=== PATIENT | female | born 1980 | race Caucasian/White ===

== ENCOUNTER 2022-10-06 12:44 | Emergency (ER) | payer BC, SELFPAY ==
[2022-10-06 12:44] VITALS: BP 144/97; PULSE 100; RESP 18; TEMP 36.4; O2SAT 98; BMI 23.7
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
== END 2022-10-06 13:45 | disposition home or self-care (01) ==
PROVIDERS: Emergency Provider Emergency Medicine; PCP Internal Medicine; Visit Provider Emergency Medicine
DX: S06.0X0A Concussion without loss of consciousness, initial encounter (principal); V43.52XA Car driver injured in collision with other type car in traffic accident, initial encounter
CPT/HCPCS: 70450; 99282

== ENCOUNTER 2024-05-30 05:54 | Day surgery (SDC) | payer BC, SELFPAY ==
--- NOTE | 2024-05-28 11:53 | HP.PCM.OB_ITS ---
History and Physical Date of Admission: 05/30/24 Expand All Collapse All Pre-Op History and Physical HPI: The patient is a 43 year old female presenting for pre-operative visit. She is scheduled for Hysteroscopy D&C and polypectomy, for AUB, Endometrial polyps on 05/30/24. Procedure discussed along with risks, benefits and complications. Other alternatives discussed for management. Consent form signed? Yes. PAST MEDICAL HISTORY PAST MEDICAL HISTORY Diagnosis Date ? Adenomatous colon polyp ? Lump or mass in breast 05/01/2006 LEFT Breast. This has since resolved. ? Other forms of migraine ? Vitiligo since childhood PAST SURGICAL HISTORY PAST SURGICAL HISTORY Procedure Laterality Date ? COLONOSCOPY 05/11/2021 ? PAST SURGICAL HISTORY OF Right 06/2014 right knee surgery CURRENT MEDICATIONS Current Outpatient Medications Medication Sig Dispense Refill ? budesonide-formoterol (SYMBICORT) 160-4.5 mcg/actuation inhaler Inhale 2 Puffs as instructed two times a day. 1 Each 1 ? fluticasone-salmeterol (WIXELA INHUB) 250-50 mcg/dose inhaler Inhale 1 Puff as instructed two times a day. 1 Each 1 ? albuterol HFA (VENTOLIN HFA) 90 mcg/actuation inhaler Inhale 2 Puffs as instructed every 4 hours as needed for wheezing/shortness of breath. 1 Each 1 ? cyclobenzaprine (FLEXERIL) 10 mg tablet Take 1 tablet by mouth at bedtime as needed for muscle spasm. 30 tablet 0 ? ibuprofen (MOTRIN) 200 mg tablet Take 200 mg by mouth every 6 hours as needed. ? ergocalciferol 50,000 unit capsule (VITAMIN D2, DRISDOL) Take 1 capsule by mouth two times a week. TO BE TAKEN ORALLY DIRECTED. Take 1 tablet by mouth twice weekly [id number], then decrease to 1 tablet weekly. 24 capsule 3 ? lidocaine 5 % gel Apply to affected area three times daily as needed. 30 g 0 ? aspirin/acetaminophen/caffeine(EXCEDRIN MIGRAINE 250 MG-250 MG-65 MG TAB) as necessary 0 0 ? wheat dextrin (BENEFIBER SUGAR FREE, DEXTRIN,) 3 gram/3.8 gram powd Take 12 g by mouth once daily. Current Facility-Administered Medications Medication Dose Route Frequency Provider Last Rate Last Admin ? cyanocobalamin 1,000 mcg injection 1,000 mcg INTRAMUSCULAR q 4 WEEKS Sera Jones APRN.WINDOWS SERVER SUPPORT TECHNICIAN 1,000 mcg at 04/23/24 1008 ALLERGIES: Patient has no known allergies. PERSONAL HISTORY: SOCIAL HISTORY Social History Tobacco Use ? Smoking status: Never ? Smokeless tobacco: Never Vaping Use ? Vaping status: Never Used Substance Use Topics ? Alcohol use: Yes Alcohol/week: 3.0 standard drinks of alcohol Types: 3 Cans of Beer (12oz) per week Comment: OCCASIONAL ? Drug use: No FAMILY HISTORY: FAMILY HISTORY FAMILY HISTORY Problem Relation Age of Onset ? Thyroid Mother Had removed, nonmalignant ? other (Fibroid tumor) Mother Had hysterectomy for this ? Heart Maternal Grandmother ? other (lupus) Maternal Grandmother ? Crohn's Disease Maternal Grandmother ? Heart Maternal Grandfather several UT's REVIEW OF SYMPTOMS: negative except as noted above PHYSICAL EXAMINATION: VITALS: Blood pressure 120/70, pulse 78, height 162.6 cm (5' 4), weight 65.8 kg (145 lb), last menstrual period 04/25/2024, SpO2 99%. GENERAL: The patient is well nourished, well hydrated in no acute distress. , The patient is oriented to time, place, and person. NECK: full range of motion LUNGS: Clear to auscultation bilaterally. no wheezes, rhonchi or rales HEART: Regular rate and rhythm, Normal heart sounds, and No murmurs or gallops IMPRESSION: 43yo with AUB, Endometrial polyps PLAN: hysteroscopy, D&C, polypectomy with symphion Pt has been counseled on risks/benefits and alternatives of surgery including but not limited to anesthesia, bleeding, infection, uterine perforation with subsequent injury to pelvic structures including bowel, bladder, ureters and vessels. Pt wishes to proceed with surgery at this time. Pre and post op instructions reviewed I have reviewed and updated past medical and surgical history, medications and allergies Katie Jaramillo MD Office Visit on 05/13/2024 Note shared with patient Additional Documentation Vitals: BP 120/70 Pulse 78 Ht 162.6 cm (5' 4) Wt 65.8 kg (145 lb) LMP 04/25/2024 (Exact Date) SpO2 99% BMI 24.89 kg/m? BSA 1.72 m? More Vitals Flowsheets: [facility] PDMP N[employer] SCORES, AMB ROOMING INTAKE MINI, Vital Signs Encounter Info: Billing Info, History, Allergies, Detailed Report
[2024-05-30] VITALS (9 sets, daily range): BP systolic 71–109; BP diastolic 48–84; PULSE 68–79; RESP 16; TEMP 36.1–37; O2SAT 96–100; BMI 24.5
[2024-05-30] MEDS: Lactated Ringers 1,000 ML 15 ML IV ×2 (07:21→07:29)
--- NOTE | 2024-05-30 07:23 | PRE.ANES_ITS ---
ASA Classification* ASA Classification ASA Classification: 2 Assessment & Plan Anesthesia* Anesthesia Assessment Anesthesia Assessment: Discussed sedation and/or anesthesia options, risks, benefits, and alternatives with patient/parents/legal guardian/POA. Questions invited. The patient/parents/legal guardian/POA seems to understand and agrees to proceed with anesthesia plan. Reviewed the physical assessment, medical history, allergy history and patient home medications list prior to surgery/procedure/anesthetic and documented any changes. Performed airway and anesthesia risk assessments. Anesthesia Type Anesthesia Type: MAC History Source History Obtained from:: Patient and Chart Anesthesia Focused Assessment* Temperature: 98.6 F Pulse Rate: 77 Blood Pressure: 71/48 (Repeat blood pressure is 95/75.) Respiratory Rate: 16 Pulse Ox: 98 Oxygen Delivery Method: Room Air Airway Assessment Mouth opens: >3 cm Mallampati Score: III Teeth Condition: Intact Neck Range of motion (ROM): Full ROM Focused Labs Anesthesia Preop lab: CBC WBC 12.5 K/mm3 (4.4-11.0) H 11/23/16 20:22 7 RBC 4.30 M/mm3 (4.2-5.4) 11/23/16 20:22 11/23/16 Hgb 13.0 g/dl (12.0-15.0) 11/23/16 20:22 11/23/16 Hct 39.3 % (37-47) 11/23/16 20:22 11/23/16 Plt Count 324 K/mm3 (150-450) 11/23/16 20:22 11/23/16 CHEMISTRY Potassium 3.8 mmol/L (3.5-5.1) 11/23/16 20:22 11/23/16 Sodium 137 mmol/L (136-145) 11/23/16 20:22 11/23/16 BUN 12 mg/dL (7-18) 11/23/16 20:22 11/23/16 Creatinine 0.84 mg/dL (0.55-1.02) 11/23/16 20:22 11/23/16 Glucose 98 mg/dL (70-110) 11/23/16 20:22 11/23/16 COAG Urine Test Pending 05/30/24 06:15 05/30/24 Pre-Assessment Diagnosis/Proposed Procedure Planned Operative Procedure(s): Hysteroscopy,D&C, polypectomy, Symphion Anesthesia History Anesthesia History - director funds development: Anesthesia History - director funds development Hx Hospitalization No 05/16/24 08:19 Any Problems With Anesthesia No 05/16/24 08:19 Cholinesterase deficiency No 05/16/24 08:19 You/Your Family Experience No 05/16/24 08:19 fever (hyperthermia) with Relationship Recent Exposure to Contagious No 05/30/24 06:30 Disease Does patient have nerve No 05/16/24 08:19 stimulator Patient instructed to have device shut off --Does patient have Pacemaker No 05/30/24 06:30 or ICD? When Was Last Pacemaker Check QUESTION #4 FULL TEXT: You/Your Family Experience fever (hyperthermia) with Anesthesia Last Oral Intake Last Oral intake: Last Oral Intake NPO since 20:00 05/30/24 06:30 Meds taken in AM with sips of No 05/30/24 06:30 water? Meds patient instructed to take am of surgery PONV PONV - director funds development: PONV - director funds development Female Yes 05/16/24 08:19 HX of Motion Sickness Yes 05/16/24 08:19 HX of N/V After Surgery Yes 05/16/24 08:19 Non-Smoker Yes 05/16/24 08:19 Duration of Surgery greater No 05/16/24 08:19 than 60 minutes Number of Risk Factors 4 05/16/24 08:19 PONV Score Severe Risk 05/16/24 08:19 Height & Weight Height & Weight: Anesthesia: Height & Weight Height 5 ft 4 in 05/30/24 06:30 Weight: 65 kg 05/30/24 06:30 Body Mass Index (BMI) 24.5 05/30/24 06:30 Respiratory Assessment Respiratory Assessment - director funds development: Respiratory Tract Infection Hx - director funds development Hx Respiratory Tract Infection No 05/16/24 08:19 STOP Sleep Apnea STOP Sleep Apnea - director funds development: STOP Sleep Apnea - director funds development Hx Hypertension No 05/16/24 08:19 Hx Sleep Apnea No 05/16/24 08:19 CPAP BIPAP Do you snore loudly (louder No 05/16/24 08:19 than talking or can be heard Do you often feel tired/ No 05/16/24 08:19 fatigued/ sleepy during daytime? Has anyone observed you stop No 05/16/24 08:19 breathing during sleep? STOP Results Negative 05/16/24 08:19 QUESTION #5 FULL TEXT : Do you snore loudly (louder than talking or can be heard through closed doors)? Tobacco Use History Tobacco Use History - director funds development: Tobacco Use History - director funds development Tobacco Use Smoking Status Never smoker 05/16/24 08:19 Hx Tobacco Use No 05/16/24 08:19 Years Smoking Packs Smoked per Day Smoking Cessation Date was within the last 15 years Hx Smoking Cessation Date Hx Smoking Cessation Counseling Hematologic Medial History Hematologic Hx - director funds development: Hematologic Medical Hx - compliance representative Hx of Blood Transfusion No 05/16/24 08:19 Hx of Transfusion in last 3 No 05/16/24 08:19 Months Date of Last Transfusion (if within last 3 months) Ever experience any problems No 05/16/24 08:19 with transfusion(s)? Specify any problems Hx of Preganancy in last 3 N/A 05/16/24 08:19 Months Nurse Filling Out Transfusion NBUCHER 05/16/24 08:19 & Questions: Date: 05/16/24 05/16/24 08:19 Time: 08:19 05/16/24 08:19 Patient unable to answer at this time (ie. confused, unrespo /Reproduction History /Reproductive History - director funds development: /Reproductive Hx- director funds development Hx Now No 05/16/24 08:19 Gestational Age (in weeks): EDC: Hx Hx Para Hx Section SAB No 05/16/24 08:19 Active Medications Active Medications: Current Medications Generic Name Dose Route Start Last Admin Trade Name Freq PRN Reason Stop Dose Admin Lactated Ringer's 1,000 mls @ 15 mls/hr 05/30/24 06:30 IV 06/02/24 01:09 .Q48H [facility] Protocol PFSH Medical History Wears glasses Alcohol use Low iron Migraine headache Syncope Non-smoker Home Medications ?Medication ?Instructions ?Recorded ?Last Taken ?Type Lactobacillus acidophilus 10 100 mmu cells PO DAILY Unknown History billion cell capsule (Probacap) calcium phosphate,dibasic 77 1 tab PO DAILY 05/16/24 U nknown History mg-vitamin D3 400 unit tablet ferrous sulfate 325 mg (65 mg 325 mg PO QDAY 05/16/24 Unknown History iron) tablet (Feosol) Allergy/AdvReac Type Severity Reaction Status Date / Time No Known Allergies Allergy Verified 05/16/24 08:17 Surgical History History of wisdom tooth extraction History of right knee surgery History of colonoscopy Social History Smoking Status: Never smoker Review of Systems (Anesthesia) ROS Narrative System reviewed and no additional complaints, except as documented.
--- NOTE | 2024-05-30 07:30 | EMB_PTH ---
PATIENT: JARED FUNES LOC: [facility] U#:[id number] AGE/SX: 43/F ROOM: RE05/30/[address]: Dr. Katie Ramos, MDDOB: 1980 BED: DIS: 05/30/2024 SPEC #: [id number] RECD: 05/30/24 14:45 STATUS: RICO REXiomara #: [id number] AMBREEN: 05/30/24 07:[address]: Katie Ramos DEPT: SURGICAL PATHOLOGY RECD BY: Anabel Rausch ENTERED: 05/31/24 08:33 SP TYPE: ENDOM BX/C GUERO DR: Dr. Елена Sotelo MD Tissues: Endometrium, NOS Procedures: Surgery Specimen Level IV HEADER OPERATION: Hysteroscopy, D&C, polypectomy PRE-OP DIAGNOSIS: Abnormal uterine bleeding TISSUE SUBMITTED: Endometrial curettings and endocervical polyp MICROSCOPIC DIAGNOSIS Endometrial curettings and endocervical polyp, D&C and polypectomy: Simple endometrial hyperplasia without atypia. Fragments of myometrium. Fragments of benign endocervical polyp. UBALDO. 06/03/2024 MICROSCOPIC DESCRIPTION Slides are reviewed. GROSS DESCRIPTION Received in fixative is one container labeled with the patient's name and designated Endometrial curettings and endocervical polyp. The specimen consists of multiple fragments of salmon indurated soft tissue mixed with mucoid tissue that in aggregate measure 3 x 2.5 x 0.3 cm. The specimen is totally submitted in one cassette. 05/31/2024 TC:5 CPT:[id number]
--- NOTE | 2024-05-30 08:05 | PCM.DC ---
Discharge Instructions Diet Discharge Diet: No restrictions DC O2, CPAP, BIPAP needs Home O2 Discharge instructions: No Dressing / Incision May resume sexual activity in: 1 week Dressing / Incision Call your doctor if you observe: Fever of 101 or Higher, Inability to urinate, Using more than 1 pad per hour and Uncontrolled pain Follow Up Care Please Follow Up With: Katie Ramos MD When: Dr. Jaramillo Will call with Pathology results. If you have concerns and need a post op visit call [phone] Test Results: Test results from this visit will be discussed in further detail at your follow-up appointment, if applicable. Discharge Plan Admission Attending Provider: Katie Ramos Primary Care Provider: Елена Sotelo Instructions Print Language: Turkish Discharge Orders/Prescriptions Prescriptions: No Action calcium phos,dibas-vitamin D3 77-400 mg-unit tablet 1 tab PO DAILY ferrous sulfate [Feosol] 325 mg (65 mg iron) tablet 325 mg PO QDAY Probacap 10 billion cell capsule 100 mmu cells PO DAILY Referrals / Follow Up: Елена Sotelo MD [Primary Care Provider] - Disposition Disposition (needs filled in before D/C Order can be placed): Home, Self Care
--- NOTE | 2024-05-30 08:07 | PCM.OPRPT ---
Operative Report (Standard) Operative Information Date of Procedure: 05/30/24 Pre-Operative Diagnosis: AUB, endometrial polyp Post-Operative Diagnosis: Same, endocervical polyp Surgery/Procedure Performed: Hysteroscopy, d&C, polypectomy with symphion mmd unit teacher: Yes Environmental Health Inspector: Pallavi Wallace MS3 Tasks completed by phlebotomist medical lab assistant: Retracting and Other (dilating cervix) Type of Anesthesia: MAC RN Documented Start/Stop Times: Operation Date: 05/30/24 07:30 Case Time Into Pre-Op 05/30/24 06:35 Out of Pre-Op 05/30/24 07:35 Anesthesia Start 05/30/24 07:38 Into Room 05/30/24 07:38 Procedure Start 05/30/24 07:54 Procedure End 05/30/24 08:04 Procedure Start Time: 07:54 Procedure Stop Time: 08:04 Select all DRAINS/GRAFTS/IMPLANTS that apply: None Estimated Blood Loss: <5cc Specimen collected: Yes Description of specimen(s) removed: endometrial curettings, endocervical polyps Description of surgery: Informed consent was obtained the patient was taken the operating room she was placed in supine position. She was given anesthesia. She was then placed in the [facility] where she was prepped and draped in the normal sterile fashion. bladder drained. At this time the weighted speculum was placed in the posterior fornix of vagina. Single-tooth tenaculum was used to gently grasp the anterior lip the cervix. At this time the uterine cavity was sounded to approximately 8 cm. Gentle dilatation was performed once adequate dilatation of the cervix was achieved the hysteroscope using normal saline as a distention medium was placed. Tubal ostia visualized. Endocervical polyp noted and possible endometrial polypoid tissue. Symphion resecting device used to obtain endometrial curettings and to perform polypectomy. Tissue will be sent to pathology for evaluation. Tenaculum removed. Good hemostasis. Instrument, lap count correct x 2. Vaginal Sweep was negative. Surgical Findings: endocervical polyp, possible endometrial polypoid tissue Complications Complications: No Admit VTE Documentation VTE Present on Admission: Yes VTE Mechan Device Prophylaxis: SCD's VTE Pharm Prophylaxis ordered?: No Reason prophylaxis not ordered: Treatment Not Indicated
--- NOTE | 2024-05-30 08:18 | PCM.POST.ANE ---
Anesthesia: Postop Eval I Current Vital Signs Temperature: 97 F Pulse Rate: 79 Blood Pressure: 107/81 Respiratory Rate: 16 Pulse Ox: 96 Oxygen Delivery Method: Room Air Assessment Airway patent: Yes Spontaneous unlabored respirations: Yes Mental status: Awake and Calm nausea: No Vomiting: No Anesthesia Complication: No Fluid Hydration Crystalloid volume administer (ml): 300 Total IV fluid infused: 300 Progress Note Anesthesia document: Postop Eval 1 completed: Yes
[2024-05-30 08:57] LABS: Internal QC Validated? YES +Cl - CLEAR BKGD; Pregnancy, Urine Negative Negative
[2024-05-30] MEDS: Ondansetron ODT 4 MG Tablet PO (09:38)
--- NOTE | 2024-05-30 13:37 | POSTOPAN2_ITS ---
Anesthesia Postop Eval I Sum Postop Eval Completion status Anesthesia document: Postop Eval 1 completed: Yes Anesthesia Postop Eval I Summary Anesthesia Postop Eval I Summary: Anesthesia Postop Eval I: Assessment Summary Airway patent Yes 05/30/24 08:19 MOTOR COACH OPERATOR.[email or web address] Spontaneous unlabored Yes 05/30/24 08:19 MOTOR COACH OPERATOR.GDOTT respirations Mental status Awake,Calm 05/30/24 08:19 MOTOR COACH OPERATOR.GDOTT nausea No 05/30/24 08:19 MOTOR COACH OPERATOR.GDOTT Vomiting No 05/30/24 08:19 MOTOR COACH OPERATOR.GDOTT Anesthesia Postop Eval I: Fluid Summary Crystalloid volume administer 300 05/30/24 08:19 MOTOR COACH OPERATOR.GDOTT (ml) Colloids volume administered ( ml) Blood Product volume administered (ml) Total IV fluid infused 300 05/30/24 08:19 MOTOR COACH OPERATOR.GDOTT Anesthesia Postop Eval I: Summary Notes Anesthesia Complication No 05/30/24 08:19 MOTOR COACH OPERATOR.GDOTT Anesthesia Complication Comment: Post-operative progress note Anesthesia: Postop Eval II Evaluation Mental status: Awake and Calm Pain Level: 1 nausea: No Vomiting: No Progress Note Post-operative progress note: Patient did have further nausea once she was brought over to customer care agent. Additional oral dissolving Zofran was given at this time. Nausea was resolved. Complications Anesthesia Complication: No
--- NOTE | 2024-05-30 13:37 | PCM.POSTANE2 ---
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 Mental status Awake,Calm 05/30/24 08:19 [email or web address] [email or web address] nausea No 05/30/24 08:19 [email or web address] [email or web address] Vomiting No 05/30/24 08:19 [email or web address] Anesthesia Postop Eval I: Fluid Summary Crystalloid volume administer 300 05/30/24 08:19 [email or web address] (ml) Colloids volume administered ( ml) Blood Product volume administered (ml) Total IV fluid infused 300 05/30/24 08:19 [email or web address] [email or web address] Anesthesia Postop Eval I: Summary Notes Anesthesia Complication No 05/30/24 08:19 [email or web address] Anesthesia Complication Comment: Post-operative progress note Anesthesia: Postop Eval II Evaluation Mental status: Awake and Calm Pain Level: 1 nausea: No Vomiting: No Progress Note Post-operative progress note: Patient did have further nausea once she was brought over to childcare worker. Additional oral dissolving Zofran was given at this time. Nausea was resolved. Complications Anesthesia Complication: No
== END 2024-05-30 09:58 | disposition home or self-care (01) ==
LOC: SDC 06:39 → AC 06:40
PROVIDERS: PCP Internal Medicine; Referring Provider Obstetrics & Gynecology; Visit Provider Obstetrics & Gynecology
PROC: 0UB98ZZ Excision of Uterus, Via Natural or Artificial Opening Endoscopic (ICD-10-PCS; CPT 58558; principal; 2024-05-30 07:15)
DX: N93.9 Abnormal uterine and vaginal bleeding, unspecified (principal); N85.01 Benign endometrial hyperplasia
CPT/HCPCS: 58558; 00952; 81025; 88305; J2405